=== PATIENT | female | born 1990 | race Caucasian/White ===

== ENCOUNTER 2018-02-18 08:15 | Emergency (ER) | payer OTHER ==
[2018-02-18 08:22] VITALS: BP 102/62
[2018-02-18] MEDS ORDERED: DIPH/PERTUSS(ACELL)/TETANUS VAC/PF 0.5 ML SYR (>=10YO) IM ONE (08:31)
--- NOTE | 2018-02-18 08:40 | ER Document Report ---
ED General - General Chief Complaint: Puncture Wound to Foot Stated Complaint: RIGHT FOOT INJURY/STEPPED ON LUCITA NAIL Time Seen by Provider: 02/18/18 08:31 Mode of Arrival: Ambulatory Information source: Patient Notes: 28 yr old female presents with complaints of right foot puncture wound from a lucita nail through the sneaker. Pt denies any other injuries. TRAVEL OUTSIDE OF THE [place] IN LAST 30 DAYS: No - HPI Onset: Yesterday Onset/Duration: Sudden Quality of pain: Achy Severity: Mild Pain Level: 1 Associated symptoms: Other Exacerbated by: Denies Relieved by: Denies Similar symptoms previously: No Recently seen / treated by doctor: No - Related Data Allergies/Adverse Reactions: No Known Allergies Allergy (Verified 02/18/18 08:16) Past Medical History - Social History Smoking Status: Never Smoker Cigarette use (# per day): No Chew tobacco use (# tins/day): No Smoking Education Provided: No Family History: Reviewed & Not Pertinent Review of Systems - Review of Systems Notes: PHYSICAL EXAMINATION: GENERAL: Well-appearing, well-nourished and in no acute distress. HEAD: Atraumatic, normocephalic. EYES: Pupils equal round extraocular movements intact, conjunctiva are normal. ENT: Nares patent NECK: Normal range of motion LUNGS: No respiratory distress Musculoskeletal: Normal range of motion NEUROLOGICAL: Normal speech, normal gait. PSYCH: Normal mood, normal affect. SKIN: small puncture wound closed, no foreign body noted Physical Exam - Vital signs Vitals: Temp Pulse Resp BP Pulse Ox 97.8 F 64 14 102/62 100 02/18/18 08:21 02/18/18 08:21 02/18/18 08:21 02/18/18 08:21 02/18/18 08:21 Course - Re-evaluation Re-evalutation: 02/18/18 08:47 tetanus will be updated, pt started on cipro, unable to irrigate the wound since it has already closed pt explained the side effects of antibiotics and risk factors to look out for After performing a Medical Screening Examination, I estimate there is LOW risk for OPEN FRACTURE, COMPARTMENT SYNDROME, TENDON RUPTURE, ACUTE NEUROVASCULAR INJURY, or RETAINED FOREIGN BODY, thus I consider the discharge disposition reasonable. Also, there is no evidence or peritonitis, sepsis, or toxicity. I have reevaluated this patient multiple times and no significant life threatening changes are noted. The patient and I have discussed the diagnosis and risks, and we agree with discharging home with close follow-up with the understanding that symptoms and presentations can change. We also discussed returning to the Emergency Department immediately if new or worsening symptoms occur. We have discussed the symptoms which are most concerning (e.g., changing or worsening pain, fever, numbness, weakness, cool or painful digits) that necessitate immediate return. - Vital Signs Vital signs: Temp Pulse Resp BP Pulse Ox 97.8 F 64 14 102/62 100 02/18/18 08:21 02/18/18 08:21 02/18/18 08:21 02/18/18 08:21 02/18/18 08:21 Discharge - Discharge Clinical Impression: Puncture wound Condition: Stable Disposition: HOME, SELF-CARE Instructions: Laceration Care ([facility]), Prophylactic Antibiotic ([facility]), Tetanus Immunization Given ([facility]) Additional Instructions: Follow up with your physician tomorrow for further care or return to the ED IMMEDIATELY if symptoms worsen or new concerns occur. If you cannot afford to follow up with your primary care physician a list of low cost clinics have been provided at the end of your discharge papers as well. Prescriptions: Ciprofloxacin HCl [Cipro 500 mg Tablet] 500 mg PO BID #20 tablet
== END 2018-02-18 09:00 | disposition home or self-care (01) ==
LOC: ER 08:15
DX: S91.331A Puncture wound without foreign body, right foot, initial encounter (principal); W22.09XA Striking against other stationary object, initial encounter; Z23 Encounter for immunization
CPT/HCPCS: 90471; 90715; 99282

== ENCOUNTER 2019-09-01 01:28 | Emergency (ER) | payer OTHER ==
[2019-09-01 01:51] VITALS: BP 117/71
[2019-09-01 02:49] LABS: APPEARANCE,URINE CLEAR; BILIRUBIN,URINE NEGATIVE (NEGATIVE); COLOR,URINE YELLOW; GLUCOSE, URINE NEGATIVE (NEGATIVE); KETONES,URINE NEGATIVE (NEGATIVE); LEUKOCYTE ESTERASE,URINE NEGATIVE (NEGATIVE); NITRITE,URINE NEGATIVE (NEGATIVE); PROTEIN,URINE NEGATIVE (NEGATIVE); URINE SPECIFIC GRAVITY 1.016; UROBILINOGEN,URINE NEGATIVE mg/dL (<2.0)
[2019-09-01] MEDS ORDERED: DOXYCYCLINE HYCLATE 100 MG TABLET PO ONE (04:26)
--- NOTE | 2019-09-01 04:29 | ER Document Report ---
HPI - HPI Time Seen by Provider: 09/01/19 03:30 Pain Level: 2 Context: Patient is a 29-year-old female that comes emergency department for chief complaint of rash over the inguinal area. She states that this has been worsening for most 2 weeks, she states that she was seen by primary care, referred to [facility], [facility] appointment is not for several more weeks and she is becoming concerned because it is worsening. She states that it is irritating, not particularly painful, and has not itched at all. She states her also has areas on his genitals that she became concerned about. She denies discharge, dysuria, bleeding, abdominal pain, fever, or any other sexual partners. 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 LMP within the past month. - REPRODUCTIVE LMP: 08/08/19 Reproductive: DENIES: : Past Medical History - Social History Smoking Status: Never Smoker Family History: Reviewed & Not Pertinent Patient has suicidal ideation: No Patient has homicidal ideation: No Renal/ Medical History: Denies: Hx Peritoneal Dialysis Vertical Provider Document - CONSTITUTIONAL General Appearance: WD/WN, No Apparent Distress - INFECTION CONTROL TRAVEL OUTSIDE OF THE [place] IN LAST 30 DAYS: No - HEENT HEENT: Atraumatic, Normal ENT Exam, Normocephalic - NECK Neck: Normal Inspection - RESPIRATORY Respiratory: Breath Sounds Normal, No Respiratory Distress - CARDIOVASCULAR Cardiovascular: Regular Rate, Regular Rhythm - GI/ABDOMEN Gastrointestinal: Abdomen Soft, Abdomen Non-Tender. negative: Abdomen Tender - REPRODUCTIVE Female Genitalia: negative: Normal Inspection - multiple papules which are mildly erythematous over the inguinal region and the pubic region. No overt umbilication, each area appears to be squeezed open but there is no jerez of excoriation. No noted vesicles, pustules, induration, fluctuance, or overt erythema. No lesions noted otherwise. Exam performed with Hilaria AMES at bedside Course - Re-evaluation Re-evalutation: Patient has multiple papules which are mildly erythematous over the inguinal region and the pubic region. No overt umbilication, each area appears to be squeezed open but there is no jerez of excoriation. No noted vesicles, pustules, induration, fluctuance, or overt erythema. No lesions noted otherwise. I feel this is most likely folliculitis, less likely condyloma acuminata. No signs of herpes, syphilis, abscess, cellulitis at this time. Patient with no other complaints. Discussed options. Treating with doxycycline, I did provide her with imiquimod as well, she does have good [facility] [facility] [facility] follow-up. Discussed return precautions. Patient states appreciation and agreement. - Vital Signs Vital signs: Temp Pulse Resp BP Pulse Ox 98 F 16 117/71 100 09/01/19 01:41 09/01/19 01:41 09/01/19 01:41 09/01/19 01:41 - Laboratory Laboratory results interpreted by me: 09/01/19 01:55 Urine Blood SMALL H Discharge - Discharge Clinical Impression: Rash of groin Condition: Stable Disposition: HOME, SELF-CARE Additional Instructions: The area appears to be folliculitis, less likely condyloma acuminata in a very early mild stage. I recommend the doxycycline as prescribed, follow-up with [facility] appointment for additional management. You have been provided with imiquimod ointment in case the doxycycline has not cleared this after completion of the prescription Return if you worsen including fever, developing swelling or redness, severe developing pain, or any other concerning symptoms. Prescriptions: Imiquimod [Aldara 5% Cream 0.25 gm Pkt] 1 each TOP ASDIR PRN #1 packet PRN Reason: Doxycycline Hyclate 100 mg PO BID #14 capsule Referrals: STUART WILLIS FNP [Primary Care Provider] - Follow up as needed
== END 2019-09-01 04:36 | disposition home or self-care (01) ==
LOC: ER 01:28
DX: R21 Rash and other nonspecific skin eruption (principal)
CPT/HCPCS: 81001; 81025; 99283

== ENCOUNTER → 2020-01-30 | Outpatient (CLI) | payer OTHER ==
[2020-01-30 13:44] LABS: A TYPE INFLUENZA AG NEGATIVE (NEGATIVE); B INFLUENZA AG NEGATIVE (NEGATIVE)
[2020-01-30 13:53] VITALS: BP 117/67
--- NOTE | 2020-01-30 13:53 | ER RDC ASSESSMENT REPORT ---
Intake - In the Last 14 days Have you traveled outside [place]?: No Have you been in close contact with someone CONFIRMED: Yes Worked in Healthcare?: No - Symptoms Subjective Fever([place] feverish): No Chills: No Muscule Aches: No Runny Nose: No Sore Throat: No Cough (New or worsening chronic cough): No Shortness of breath: No Nausea or Vomiting: No Headache: Yes Abdominal Pain: No Diarrhea(3 or more loose stools in last 24 hours): No - Do you have any of the following Chronic lung disease: Asthma or emphysema or COPD: No Cystic Fibrosis: No Diabetes: No High Blood Pressure: No Cardiovascular Disease: No Chronic Kidney Disease: No Chronic Liver Disease: No Chronic blood disorder like Sickle Cell Disease: No Weak immune system due to disease or medication: No Neurologic condition that limits movement: No Developmental delay - Moderate to Severe: No Recent (within past 2 weeks) or current : No Morbid Obesity (>100 pounds over ideal weight): No Obesity Comment: Height 5 feet 9 inches weight 190 pounds - Objective Temperature: 97.3 F Pulse Rate: 70 Respiratory Rate: 20 Blood Pressure: 117/67 O2 Sat by Pulse Oximetry: 97 Objective: Given above, testing performed: If Testing Performed: Test Specimen Type Sent to General - General Information source: Patient Notes: Patient here at [facility] for COVID testing had exposure to a positive COVID person on January 21 since then has developed a headache that has been persistent starting last week sees Dr. Sunny Corey is PCP and was advised to be tested for COVID. - Related Data Allergies/Adverse Reactions: No Known Allergies Allergy (Verified 02/18/18 08:16) Past Medical History - General Information source: Patient - Social History Smoking Status: Never Smoker Family History: Reviewed & Not Pertinent Renal/ Medical History: Denies: Hx Peritoneal Dialysis Physical Exam - General General appearance: Appears well, Alert In distress: None Notes: PHYSICAL EXAMINATION: GENERAL: Well-appearing and in no acute distress. HEAD: Atraumatic, normocephalic. EYES: sclera anicteric, conjunctiva are normal. ENT: nares patent. Moist mucous membranes. NECK: Normal range of motion, supple without lymphadenopathy LUNGS: CTAB and equal. No wheezes rales or rhonchi. Resp even and unlabored. lung sounds clear. HEART: Regular rate and rhythm without murmurs ABDOMEN: Soft, nontender, normal bowel sounds, no guarding. EXTREMITIES: No cyanosis. NEUROLOGICAL: . Normal speech. PSYCH: Normal mood, normal affect. SKIN: Warm, Dry, normal turgor, Diagnostic Results Laboratory Results: Influenza A (Rapid) NEGATIVE (NEGATIVE) 01/30/20 12:17 Influenza B (Rapid) NEGATIVE (NEGATIVE) 01/30/20 12:17 Group A Strep Rapid NEGATIVE (NEGATIVE) 01/30/20 12:17 Patient informed of negative rapid strep and negative rapid flu results . pending strep culture pending COVID testing results. Patient provided instructions regarding COVID to include: As a person under investigation for Covid 19, the [facility], division of public health advises you to adhere to the following guidance until your test results are reported to you. If your test result is positive, you will receive additional information from your provider and your local health department at that time. Remain at home until you are cleared by the health provider or public health authorities. Keep a log of visitors to your home, notify any visitors to your home of your isolation status. If you plan to move to a new address or leave the county, notify the local health department in your County. Call your doctor or seek care if you have an urgent medical need. Before seeking medical care, call ahead to get instructions from the provider before arriving at the medical office clinic or hospital. Notify them that you are being tested for the virus that causes Covid 19 so that arrangements can be made, as necessary, to prevent transmission to others in the healthcare setting. Next, notify the local health department in your county. If a medical emergency arises and you need to call 911, inform the first responders that you are being tested for the virus that causes Covid 19. Next, notify the local health department in your county. Patient Education/Counseling Counseling/Education: Patient presents with upper respiratory symptoms worrisome for possible Covid 19. Patient does not have emergency worring symptoms such as difficulty breathing, shortness of breath, chest pain, pressure, confusion or cyanosis. Patient appears suitable for discharge. Patient instructed to follow up with PCP Sunny Lopez MD. TO ED For persistent or worsening symptoms. Patient's vital signs are stable and patient is nontoxic in appearance. Good return precautions have been discussed with patient, patient verbalized understanding and is agreeable with discharge plan of care at this time. RDC Discharge - Discharge Clinical Impression: COVID - 19 SCREENING Condition: Stable Disposition: Home; Selfcare
== END ==
LOC: RDC 11:15
PROVIDERS: ATTEND Nurse Practitioner Family
DX: Z20.828 Contact with and (suspected) exposure to other viral communicable diseases (principal); R51 Headache
CPT/HCPCS: 36415; 87070; 87880; 87635; 87804; C9803; 99201; 99211